=== PATIENT | male | born 1990 | race Caucasian/White ===

== ENCOUNTER 2017-11-15 14:22 | Inpatient (IN) | payer OTHER ==
[~2017-11-15] VITALS: Ht 182.9 cm; Wt 86.2 kg
[2017-11-15 14:25] VITALS: BP 143/82
--- NOTE | 2017-11-15 14:25 | NUR ---
Pre-Admission Assessment Professor Of Religion encounters pt in intake office. Pt's VS are stable. Pt is diaphoretic, nauseous, anxious and restless. Pt is with fine tremors and has myalgia. Pt endorses suing 0.5 - 1. gram of Heroin IV daily times 4 or 5 months. Pt last used, 0.5 gram IV about 30 hours ago. Pt endorses using 8mg Suboxone at 0200 this am. Pt is A/O x4 and calm and cooperative.
--- NOTE | 2017-11-15 14:50 | NUR ---
Admission Substance Use Heroin(IV) 0.5-1 gram - Daily - for 4-5 months Xanax(PO) 1-2 mg PO - Daily - 1 month Pt is admitted to [facility] via ambulation for medical management of Benzodiazepine and Opiate withdrawals. Pt is admitted to the unit at 1448. Pt is A/O x4 and makes needs known. Linear thought process and clear speech pattern. Pt with an anxious affect and depressed and dysphoric mood. Pt is diaphoretic, tremulous, piloerection of skin and complains of myalgia and cramps. Pt is cooperative and polite, but anxious and restless. Pt endorses NKA and no PMH or PPH. Pt denies any history of SI/HI, SA, A/VH or any associated psychiatric symptoms. Pt deneis any current HI/SI or A/VH. Pt denies any history of 5150 or psychiatric hospitalizations. Pt endorses coming to [facility], " to get my life back on track." Pt endorses going to [facility] in 2013 and remaining sober for two years. Pt relapsed and again was able to remain sober sober for approximately 1 year. Pt relapsed about 5 months ago and has been using 0.5-1 grams of Heroin IV daily. Pt also using 1-2 mg Xanax daily for 1 month. Pt endorses experiencing sweats, myalgia, anxiety, nausea, chills and cramps as typical withdrawal symptoms. Pt states his last use of Heroin was 30 hours prior to arrival, but pt did present with an empty Suboxone wrapper and pt endorses taking 8mg of Suboxone this am at 0200. Empty wrapper signed for, bagged and delivered to pharmacy. Pt has experienced one overdose about 5 months ago and needed to have Narcan administered. Pt presents willing and shows insight. Pt believes his biggest trigger to relapse was, " falling away from the program." Pt endorses a desire to make better connections with people in the program and learn to live a sober life. Pt began using substances , " to fit in." Pt is educated on detoxification process and provided with admission educational material. Pt oriented to the unit and room. Pt advised of unit rules and guidelines. Skin check performed by PIETRO Rodriguez with no open wounds. and with abscesses to bi-lateral arms, both closed and intact. Will continue to monitor, support and encourage according to plan of care.
[2017-11-15 15:27] LABS: *AMPHETAMINE, URINE NEGATIVE (NEGATIVE); *BARBITURATE, URINE NEGATIVE (NEGATIVE); *CANNABINOID, URINE POSITIVE (NEGATIVE); *COCCAINE, URINE POSITIVE (NEGATIVE); *OPIATE, URINE POSITIVE (NEGATIVE); *PHENCYCLIDINE SCREEN,URINE NEGATIVE (NEGATIVE)
[2017-11-15] MEDS ORDERED: MIRALAX 17 GM POWD.PACK PO PRN (15:30)
[2017-11-15] MEDS ORDERED: diphenhydrAMINE 50 MG CAPSULE PO PRN (15:30)
[2017-11-15] MEDS ORDERED: LOPERAMIDE HCL 2 MG CAPSULE PO PRN ×2 (15:30)
[2017-11-15] MEDS ORDERED: DIAZEPAM 5 MG TABLET PO PRN (15:30)
[2017-11-15] MEDS ORDERED: MAG HYDROX/AL HYDROX/SIMETH 30 ML LIQUID UDC PO PRN (15:30)
[2017-11-15] MEDS ORDERED: DICYCLOMINE HCL 20 MG TABLET PO PRN (15:30)
[2017-11-15] MEDS ORDERED: ONDANSETRON ODT 4 MG TAB.RAPDIS SL PRN (15:30)
[2017-11-15] MEDS ORDERED: DIAZEPAM 10 MG TABLET PO PRN ×2 (15:30)
[2017-11-15] MEDS ORDERED: ACETAMINOPHEN 325 MG TABLET PO PRN (15:30)
[2017-11-15] MEDS ORDERED: BUPRENORPHINE HCL 2 MG TAB.SUBL SL PRN (15:30)
[2017-11-15] MEDS ORDERED: MAGNESIUM HYDROXIDE 30 ML LIQUID UDC PO PRN (15:30)
[2017-11-15] MEDS ORDERED: BUPRENORPHINE HCL 2 MG TAB.SUBL SL ONE (15:30)
--- NOTE | 2017-11-15 15:45 | NUR ---
CIWA 16/COWS 17 Pt is tremulous, diaphoretic, anxious, restless and has chills and myalgia. Will continue to monitor, support and encourage according to plan of care.
[2017-11-15 16:00] VITALS: BP 125/78
[2017-11-15] MEDS ORDERED: 5 DAY TAPER VALIUM-SERENITY PROTOCOL PO PRN (16:00)
[2017-11-15] MEDS: METHOCARBAMOL 750 MG TABLET PO PRN (16:13)
--- NOTE | 2017-11-15 16:30 | NUR ---
Nursing note Drugs and paraphernalia found in patient's luggage during the intake process. Destroyed by two RN's.
--- NOTE | 2017-11-15 19:09 | NUR ---
End of Shift Pt was admitted to [facility] this afternoon by lyric writer. Pt is a 27 year old male admitted for medical management of Benzodiazepine and Opiate withdrawals. Pt endorses NKA, full code and regular diet. Denies any previous PMH or PPH. Initial CIWA 16 and COWS 17. Pt medicated with OT Subutex and PRN Valium. Pt complains of nausea, myalgia, chills and sweats. Pt is anxious and restless, makes needs known. A/O x4. Bed in low position with wheels locked and side rails up x2.
--- NOTE | 2017-11-15 19:30 | NUR ---
Start of Shift Note Received a 27 y/o male px, admitted for medically supervised withdrawal from heroin and Xanax. Px will be on 5 day Valium and 5 day Subutex taper, to start tomorrow, 11/16/2017. Last reported COWS 17 and CIWA 16 by AM shift nurse. During the rounds at 1930, px is awake on bed in left semi prone position. Px appears anxious. He is disheveled and unshaven. Px has flat affect and poor eye contact. He stated that he has anxiety of 10/10 and back pain of 8/10.He also complains of sweats, chills, runny nose, teary eyes and stomach cramps. He has weakness on right hand. Abscess noted on different parts of both forearms. Bed on lowest position, bed rails up 2x and call light within reach. Well continue to monitor.
[2017-11-15 20:00] VITALS: BP 142/89
[2017-11-15] MEDS: IBUPROFEN 600 MG TABLET PO PRN (20:00)
--- NOTE | 2017-11-15 20:00 | NUR ---
COWS 13 and CIWA 13 Upon assessment, Px appears anxious. He stated that he has anxiety of 10/10 and back pain of 8/10. He complains of sweats, chills, runny nose, teary eyes and stomach cramps. will continue to monitor
--- NOTE | 2017-11-15 20:00 | NUR ---
PRN medications Px received Bentyl 20 mg PO for stomach cramps, Motrin 600 mg PO for back pain of 8/10 and Valium 10 mg PO for CIWA 13. To reassess after an hour
--- NOTE | 2017-11-15 21:00 | NUR ---
MOOK Yoon, Motrin and Valium reassessment Addendum: 11/15/17 at 2258 by BISHNU ECHAVARRIA RN MIGUEL 13. Px stated that his anxiety is still 10/10. Back pain is still 8/10 and his stomach cramping was relieved. will continue to monitor
--- NOTE | 2017-11-15 21:29 | NUR ---
PRN Subutex Px received Subutex 4 mg SL for COWS 13. will continue to monitor
[2017-11-15] MEDS: SULFAMETH/TRIMETH 800/160 MG TABLET PO SCH (21:49)
--- NOTE | 2017-11-15 21:49 | NUR ---
PRN medications Px received Zofran 4 mg SL for N/V and Clonidine 0.1 mg PO for anxiety. will continue to monitor
--- NOTE | 2017-11-15 21:49 | NUR ---
Bactrim PO started Px seen and examined by Dr. Jara with order Bactrim 1 cap PO q12h as starting dose for abscess on bilateral forearms.
[2017-11-15] MEDS: CLONIDINE HCL 0.1 MG TABLET PO PRN (21:50)
[2017-11-15] MEDS ORDERED: SULFAMETH/TRIMETH 800/160 MG TABLET ONE (21:53)
--- NOTE | 2017-11-15 21:59 | NUR ---
PRN Subutex reassessment COWS 11. Px stated that his stomach cramping was relieved. No yawning noted at this time. Anxiety is still high. will continue to monitor
[2017-11-15] MEDS: HYDROXYZINE PAMOATE 25 MG CAPSULE PO PRN (22:15)
--- NOTE | 2017-11-15 22:15 | NUR ---
PRN Benadryl and Vistaril Px requested pill to help him sleep. He received Benadryl 50 mg PO and Vistaril 50 mg PO for insomnia. will continue to monitor
--- NOTE | 2017-11-15 22:20 | NUR ---
PRN Zofran reassessment Px stated that his nausea improved and no more episodes of emesis
--- NOTE | 2017-11-15 22:50 | NUR ---
PRN Clonidine reassessment Px stated that his anxiety is still very high. will continue to monitor
--- NOTE | 2017-11-15 23:15 | NUR ---
PRN Benadryl and Vistaril reassessment Px is already asleep at the moment
[2017-11-16] VITALS: BP 129/81
[2017-11-16 04:00] VITALS: BP 133/83
--- NOTE | 2017-11-16 04:00 | NUR ---
COWS and CIWA deferred COWS and CIWA deferred at 0000 and 0400 due to the px is asleep, to assess if the px is awake per doctor's order. will continue to monitor
--- NOTE | 2017-11-16 06:00 | NUR ---
COWS 11 and CIWA 12 Px woke up. He appears anxious. He stated that he has anxiety of 7/10 and back pain of 7/10. He has sweats, chills, runny nose, and teary eyes. TX= 86. will continue to monitor
--- NOTE | 2017-11-16 07:05 | NUR ---
End of Shift Note During the shift at 1999, px received Bentyl 20 mg PO, Motrin 600 mg PO and Valium 10 mg PO. Bentyl was effective. At 2128, he received Subutex 4 mg SL for COWS 13. It was effective. At 2148, he received Zofran 4 mg SL, and Clonidine 0.1 mg PO. Zofran was effective. At 2148, Bactrim 1 tab Q12H given PO as starting dose for abscess on forearms. At 2214, he received Benadryl 50 mg PO and Vistaril 50 mg PO for anxiety and insomnia. They were effective. Oral intake is 1 L, voided 2x, No BM. Px slept for 6 hours. Last COWS 11 and CIWA 12. Bed on lowest position, bed rails up 2x and call light within reach. Well continue to monitor. Px endorsed to AM shift nurse.
--- NOTE | 2017-11-16 07:30 | NUR ---
Start of Shift Marine Biologist received report on 27 year old male admitted to [facility] on 11/15/17 for medical management of Benzodiazepine and Opiate withdrawals. Pt endorses NKA, full code and regular diet. Denies PMH or PPH. Pt to be started on 5 day Subutex and 5 day Valium taper this am. Last CIWA 12 and COWS 11, per NOC report. Pt was administered Bentyl(cramps), Motrin(pain), Valium(withdrawals), Subutex(withdrawals), Zofran(nausea), Clonidine(anxiety), Vistaril(anxiety) and Benadryl(insomnia) as PRN medications on NOC, per report. Marine Biologist encounters pt in pt's room with pt resting with eyes closed. Even and unlabored respirations. Bed in low position with wheels locked and side rails up x2. Will continue to monitor, support and encourage according to plan of care.
--- NOTE | 2017-11-16 08:00 | NUR ---
CIWA 13/COWS 14 Pt is diaphoretic, anxious and has fine tremors. Pt with complaints of nausea and myalgia and chills. Will continue to monitor, support and encourage according to plan of care.
[2017-11-16 08:09] VITALS: BP 124/74
[2017-11-16] MEDS ORDERED: TUBERCULIN,PURIF.PROT.DERIV. 5 TU/0.1 ML TEST ID ONE (09:00)
[2017-11-16] MEDS ORDERED: 5 DAY TAPER OF LORAZEPAM -SERENITY PROTOCOL PO PRN (09:00)
[2017-11-16] MEDS ORDERED: 5 DAY TAPER BUPRENORPHINE -SERENITY PROTOCOL SL PRN (09:00)
[2017-11-16 09:06] LABS: BASOPHILS # (AUTO) 0.1 K/uL (0.0-8.0); BASOPHILS % (AUTO) 0.8 % (0.0-2.0); EOSINOPHILS % (AUTO) 0.5 % (0.0-7.0); HEMATOCRIT 44.1 % (36.7-47.1); HEMOGLOBIN 14.7 g/dL (12.5-16.3); LYMPHOCYTES # (AUTO) 1.8 K/uL (20.0-40.0); LYMPHOCYTES % (AUTO) 25.6 % (20.5-51.5); MEAN CORPUSCULAR HEMOGLOBIN 28.7 uug (23.8-33.4); MEAN CORPUSCULAR HGB CONC 33 g/dL (32.5-36.3); MEAN CORPUSCULAR VOLUME 86.2 fL (73.0-96.2); MONOCYTES # (AUTO) 0.7 K/uL (2.0-10.0); NEUTROPHILS # (AUTO) 4.3 K/uL (1.8-8.9); NEUTROPHILS % (AUTO) 63.1 % (38.5-71.5); PLATELET COUNT (AUTO) 187 K/uL (152-348); RED BLOOD CELL COUNT(AUTO) 5.12 MIL/uL (4.06-5.63); WHITE BLOOD COUNT (AUTO) 6.9 K/uL (3.6-10.2)
[2017-11-16] MEDS: SULFAMETH/TRIMETH 800/160 MG TABLET PO SCH ×2 (09:22→21:30)
[2017-11-16] MEDS: DIAZEPAM 10 MG TABLET PO SCH ×4 (09:22→21:30)
[2017-11-16] MEDS: MULTIVITAMINS,THERAPEUTIC TABLET PO SCH (09:22)
[2017-11-16] MEDS: BUPRENORPHINE HCL 2 MG TAB.SUBL SL SCH ×4 (09:22→21:00)
[2017-11-16] MEDS: METHOCARBAMOL 750 MG TABLET PO PRN (09:22)
--- NOTE | 2017-11-16 09:22 | NUR ---
MOOK Borges Pt complains of lower back pain of 7/10 and requests, " comfort meds". Sorting And Folding Supervisor administered medication per MD order with pt tolerating well. Will continue to monitor, support and encourage according to plan of care.
[2017-11-16 09:35] LABS: ETHANOL < 3 MG/DL (0-0)
[2017-11-16 09:44] LABS: ALANINE AMINOTRANSFERASE 65 U/L (16-63); ALKALINE PHOSPHATASE 56 U/L (50-136); ASPARTATE AMINOTRANSFERASE 29 U/L (15-37); BILIRUBIN,TOTAL 0.4 mg/dL (0.2-1.0); CARBON DIOXIDE 22 mmol/L (21-32); CHLORIDE 107 mmol/L (98-107); CREATININE 0.7 mg/dL (0.6-1.3); GLUCOSE 108 mg/dL (74-106); MAGNESIUM 2.1 mg/dL (1.8-2.4); POTASSIUM 3.9 mmol/L (3.5-5.1); TOTAL PROTEIN, SERUM 7.3 g/dL (6.4-8.2); UREA NITROGEN, BLOOD 10 mg/dL (7-18)
--- NOTE | 2017-11-16 10:22 | NUR ---
PRN Re-Assessment Pt endorses relief from discomfort, rating pain at 3/10. Will continue to monitor, support and encourage according to plan of care.
[2017-11-16 10:53] LABS: THYROID STIMULATING HORMONE 0.404 mIU/mL (0.358-3.740)
--- NOTE | 2017-11-16 12:00 | NUR ---
CIWA 10/COWS 12 Pt is diaphoretic, anxious and restless with fine tremors and complaints of nausea and chills. Will continue to monitor, support and encourage according to plan of care.
[2017-11-16 12:47] VITALS: BP 124/75
--- NOTE | 2017-11-16 13:00 | NUR ---
Subutex Refusal Pt states he does not want medication. Radiologic Technician educated pt ton importance of following MD orders. Pt states he feels better. Radiologic Technician asks, "why?". Pt states, " probably because of the Subutex." Radiologic Technician educated pt on effects of medication. Pt continues to deny need for. MD made aware. Will continue to monitor, support and encourage according to plan of care.
[2017-11-16 16:30] VITALS: BP 139/83
--- NOTE | 2017-11-16 16:30 | NUR ---
BETHANYWA 9/COWS 11 Pt with moist skin, anxiety, restless, nauseous and complains of chills. Will continue to monitor, support and encourage according to plan of care.
--- NOTE | 2017-11-16 17:00 | NUR ---
Subutex Refusal Pt continues to deny the need for medication. MD and CRN made aware. Will continue to monitor, support and encourage according to plan of care.
--- NOTE | 2017-11-16 18:48 | NUR ---
End of Shift Carcass Washer provided report on 27 year old male admitted to [facility] on 11/15/17 for medical management of Benzodiazepine and Opiate withdrawals. Pt endorses NKA, full code and regular diet. Denies PMH or PPH. Pt currently on 5 day Valium and 5 day Subutex tapers. Pt refused the 1300 and 1700 doses of Subutex. Last CIWA 9 and COWS 11. Pt was administered Robaxin(myalgia) as PRN medication. Pt is A/O x4 and makes needs known. Linear thought process and clear speech pattern. Pt with a flat affect and depressed mood. Pt has fine tremors and moist skin, pt is anxious and restless. Pt refused two doses of Subutex this afternoon, aware. Bed in low position with wheels locked and side rails up x2.
--- NOTE | 2017-11-16 19:30 | NUR ---
Start of Shift Note Received a 27 y/o male px, admitted for medically supervised withdrawal from heroin and Xanax. Px will be on 5 day Valium and 5 day Subutex taper, started 11/16/2017. Last reported COWS 11 and CIWA 9 by AM shift nurse. During the rounds at 1930, px is awake on bed in left side lying position. Px appears anxious. He is disheveled and unshaven. Px has flat affect. He stated that he has anxiety of 4/10 and back pain of 5/10. He also complains of sweats, chills, runny nose, and teary eyes. He has weakness on right hand. Bed on lowest position, bed rails up 2x and call light within reach. Well continue to monitor.
[2017-11-16 20:00] VITALS: BP 116/68
--- NOTE | 2017-11-16 20:00 | NUR ---
COWS 9 and CIWA 9 Upon assessment, px appears anxious. Px has flat affect. He stated that he has anxiety of 4/10 and back pain of 5/10. He also complains of sweats, chills, runny nose, and teary eyes. WA= 64. will continue to monitor
[2017-11-16] MEDS ORDERED: QUETIAPINE FUMARATE 100 MG TABLET ONE (22:22)
[2017-11-16] MEDS: QUETIAPINE FUMARATE 100 MG TABLET PO PRN (22:25)
[2017-11-16] MEDS: IBUPROFEN 600 MG TABLET PO PRN (22:25)
--- NOTE | 2017-11-16 22:25 | NUR ---
PRN medications Px received Seroquel 100 mg PO for insomnia and Motrin 600 mg PO for back ache of 3/10. To reassess after an hour
--- NOTE | 2017-11-16 23:25 | NUR ---
PRN Seroquel and Motrin reassessment Px is lying on bed in right side lying position, ready to sleep. He stated that his back ache improved to 2/10 from 07/14. will continue to monitor
[2017-11-17] VITALS: BP 121/71
[2017-11-17 04:00] VITALS: BP 126/75
--- NOTE | 2017-11-17 07:05 | NUR ---
End of Shift Note During the shift at 2100, px refused to take standing order Subutex 4 mg SL. 2225, px received Motrin 600 mg PO for body aches and Seroquel 100 mg PO. They were effective. Oral intake is 900 ml, voided 2x, No BM. Px slept for 7 hours. Last COWS 9 and CIWA 9. Bed on lowest position, bed rails up 2x and call light within reach. Well continue to monitor. Px endorsed to AM shift nurse.
--- NOTE | 2017-11-17 07:30 | NUR ---
START OF SHIFT Pt 27 y/o male admitted for benzo and opiate withdrawal. Pt received in room on bed with eyes closed resting, but easily arousable to name. Pt alert and oriented to name, place, and time. Perrla. Skin warm and moist to touch. Respirations even and unlabored. Appears disheveled and unkempt. Hair uncombed. Dirt under the fingernails noted of both hands. Empty drink bottles scattered throughout the room. Encouraged to maintain hygiene. Anxious and restless. Complaints of generalized discomfort and body aches. Bilateral hand tremors noted. It was reported that pt slept for 8 hours last night. Last cows=9 ciwa=9 @ 1999. Pt is on a 5 day valium and is on day 2. Pt also on a 5 day subutex and is on day 2. Bed on lowest position with side rails x 2 up for safety. Call light within reach.
[2017-11-17 08:00] VITALS: BP 131/64
--- NOTE | 2017-11-17 08:00 | NUR ---
CIWA COWS ASSESSMENT cows=10 ciwa=10. Anxious and restless. Pressured speech. Complaints of generalized discomfort and body aches. Bilateral hand tremors noted. Complaints of generalized discomfort. Easily irritable and agitated.
[2017-11-17 08:06] LABS: HEPATITIS B SURFACE AG Negative (Negative)
[2017-11-17] MEDS: SULFAMETH/TRIMETH 800/160 MG TABLET PO SCH ×2 (08:24→20:46)
[2017-11-17] MEDS: MULTIVITAMINS,THERAPEUTIC TABLET PO SCH (08:25)
[2017-11-17] MEDS: DIAZEPAM 10 MG TABLET PO SCH ×3 (08:25→20:46)
[2017-11-17] MEDS ORDERED: BUPRENORPHINE HCL 2 MG TAB.SUBL SL SCH (09:00)
--- NOTE | 2017-11-17 09:17 | NUR ---
CONSULT Pt was seen and evaluated by Clotilde QUINONEZ with new order for warm compress prn to bilateral arms.
[2017-11-17 12:00] VITALS: BP 101/78
--- NOTE | 2017-11-17 12:00 | NUR ---
COWS CIWA ASSESSMENT cowa=10 ciwa=10. Anxious and restless. Observed pacing hallways. Pressured speech. Complaints of intermittent chills and perspiration. Complaints of generalized discomfort and body aches. Bilateral hand tremors noted.
--- NOTE | 2017-11-17 13:36 | NUR ---
Therapist prompted client to attend group therapy.
[2017-11-17] MEDS ORDERED: BUPRENORPHINE HCL 2 MG TAB.SUBL SL PRN (13:45)
[2017-11-17 16:00] VITALS: BP 136/88
--- NOTE | 2017-11-17 16:00 | NUR ---
COWS CIWA ASSESSMENT cows=10 ciwa=10. Anxious and restless. Pressured speech. Complaints of generalized body aches and discomfort. Bilateral hand tremors.
--- NOTE | 2017-11-17 18:32 | NUR ---
END OF SHIFT Pt 27 y/o male admitted for benzo and opiate withdrawal. Pt alert and oriented to name, place, and time. Perrla. Skin warm and moist to touch. Respirations even and unlabored. Appears disheveled and unkempt. Food wrappings scattered throughout the room. Dirt under fingernails of both hands noted. Encouraged to maintain sobriety. Anxious and restless. Pressured speech noted. Easily irritable. Bilateral hand tremors noted. Complaints of generalized discomfort. Mostly isolative to room today with minimal peer interaction. Selective with group activity. Selective with medications. Pt refused subutex scheduled today. aware. Last cows= 10 ciwa=10 @1600. Pt is on a 5 day valium and is on day 2. Pt also on prn subutex. Bed on lowest position with side rails x2 up for safety. Call light within reach.
--- NOTE | 2017-11-17 19:30 | NUR ---
Start of Shift Note Received a 27 y/o male px, admitted for medically supervised withdrawal from heroin and Xanax. Px is placed on 5 day Valium and 5 day Subutex taper, started 11/16/2017. Last reported COWS 10 and CIWA 10 by AM shift nurse. During the rounds at 1930, px is awake inside his room. Px appears anxious. He is disheveled and unshaven. Few drinks on top of his bed side table and soiled clothes on the floor noted. He stated that he has anxiety of 3/10. He also complains of sweats, chills, runny nose, and teary eyes. He has weakness on right hand. Bed on lowest position, bed rails up 2x and call light within reach. Well continue to monitor.
[2017-11-17 20:00] VITALS: BP 124/81
--- NOTE | 2017-11-17 20:00 | NUR ---
COWS 9 and CIWA 10 Upon assessment, px appears anxious. He stated that he has anxiety of 3/10. He still complains of sweats, chills, runny nose, and teary eyes. WV= 86. will continue to monitor
[2017-11-17] MEDS: QUETIAPINE FUMARATE 100 MG TABLET PO PRN (23:42)
--- NOTE | 2017-11-17 23:42 | NUR ---
PRN Seroquel Px received Seroquel 100 mg PO for insomnia. will continue to monitor
[2017-11-18] VITALS: BP 121/83
--- NOTE | 2017-11-18 | NUR ---
COWS 9 and CIWA 10 Upon assessment, px is still awake. He appears anxious. He stated that his anxiety is still 3/10. He still complains of sweats, chills, runny nose, and teary eyes. will continue to monitor
[2017-11-18] MEDS: HYDROXYZINE PAMOATE 25 MG CAPSULE PO PRN ×2 (02:26→21:48)
[2017-11-18] MEDS: METHOCARBAMOL 750 MG TABLET PO PRN (02:26)
--- NOTE | 2017-11-18 02:26 | NUR ---
PRN Medications Px complains of body aches and increased anxiety. He received Robaxin 750 mg PO and Vistaril 50 mg PO. He's having hard time sleeping. will continue to monitor
[2017-11-18 04:00] VITALS: BP 124/79
--- NOTE | 2017-11-18 04:00 | NUR ---
COWS and CIWA deferred COWS and CIWA deferred due to the px is asleep, to assess if the px is awake per doctor's order. will continue to monitor
--- NOTE | 2017-11-18 07:05 | NUR ---
End of Shift Note During the shift at 2342, px received Seroquel 100 mg PO for insomnia. It was not effective. At 0226,still awake, he received Robaxin 750 mg PO for body aches and Vistaril for anxiety. They were effective. Oral intake is 600 ml, voided 2x, No BM. Px slept for 3.5 hours. Last COWS 9 and CIWA 10. Bed on lowest position, bed rails up 2x and call light within reach. Well continue to monitor. Px endorsed to AM shift nurse.
--- NOTE | 2017-11-18 07:30 | NUR ---
START OF SHIFT Pt 27 y/o male admitted for benzo and opiate withdrawal. Pt received in room on bed. Pt alert and oriented to name, place, and time. Perrla. Skin warm and moist to touch. Respirations even and unlabored. Appears disheveled. Clothes and food wrappings scattered throughout the room. Encouraged to maintain hygiene. Anxious and restless. Pressured speech. Easily irritable. Bilateral hand tremors noted. Complaints of generalized discomfort and body aches. It was reported that pt slept for 3.5 hours last night. Last cows=9 ciwa=10 @ 0000. Pt is on a 5 day valium taper and is on day 3. Pt also on prn subutex. Bed on lowest position with side rails x2 up for safety. Call light within reach.
[2017-11-18 08:00] VITALS: BP 121/74
--- NOTE | 2017-11-18 08:00 | NUR ---
COWS CIWA ASSESSMENT cows=11 cwia=10. Anxious and restless. Pressured speech. Pacing hallways. Easily irritable. Bilateral hand tremors noted. Complaints of generalized discomfort.
[2017-11-18] MEDS: SULFAMETH/TRIMETH 800/160 MG TABLET PO SCH ×2 (08:19→21:48)
[2017-11-18] MEDS: MULTIVITAMINS,THERAPEUTIC TABLET PO SCH (08:19)
[2017-11-18] MEDS: DIAZEPAM 5 MG TABLET PO SCH ×4 (08:19→21:48)
[2017-11-18] MEDS ORDERED: BUPRENORPHINE HCL 2 MG TAB.SUBL SL SCH ×2 (09:00→15:00)
[2017-11-18 12:00] VITALS: BP 145/68
--- NOTE | 2017-11-18 12:00 | NUR ---
COWS CIWA ASSESSMENT cows=11 ciwa=10. Anxious and restless. Pressured speech noted. Bilateral hand tremors noted. Complaints of body aches and generalized discomfort. Intermittent perspiration and chills. Easily irritable.
[2017-11-18 16:00] VITALS: BP 143/91
--- NOTE | 2017-11-18 16:00 | NUR ---
COWS CIWA ASSESSMENT cows=11 ciwa=10. Bilateral hand tremors need. Complaints of generalized body aches and discomfort. Anxious and restless. Fidgety. Intermittent perspiration and chills. Irritable.
--- NOTE | 2017-11-18 18:43 | NUR ---
END OF SHIFT Pt 27 y/o male admitted for benzo and opiate withdrawal. Pt alert and oriented to name, place, and time. Perrla. Skin warm and moist to touch. Respirations even and unlabored. Pt appears disheveled. Clothes scattered throughout the room. Dirt under fingernails of both hands noted. Encouraged to maintain hygiene. Anxious and restless. Pressured speech noted. Fidgety. Easily irritable. Bilateral hand tremors noted. Complaints of generalized body aches and discomfort. Mostly in recreation room throughout the day. Pt attended group activity. Medication compliant. Last cows= 11 ciwa=10 @1600. Pt is on a 5 day valium and is on day 3. Bed on lowest position with side rails x2 up for safety. Call light within reach.
--- NOTE | 2017-11-18 19:47 | NUR ---
START OF SHIFT NOTE Rcvd report from outgoing nurse. Pt is a 27 y/o male A/O to person, place, time, and purpose, Pt was admitted for medically supervised withdrawal from Heroin and Xanax. Pt is on day 3 of a 5 day Valium taper. Pt has been presenting w/ anxiety, restlessness, depressed mood, body aches, and abdominal cramping. Pt did not receive any PRN medications during previous shift. Last CIWA 10 and COWS 11 @ 1600. Call light is within reach. Pt will continue to be monitored and needs met.
[2017-11-18 20:00] VITALS: BP 142/84
--- NOTE | 2017-11-18 20:00 | NUR ---
CIWA AND COWS ASSESSMENT CIWA 9 and COWS 10. Pt presenting w/ anxiety, restlessness, depressed mood, abdominal cramping, and body aches. V/S: T:98.5, P:60, RR:16, SPO2:100, BP:142/84.
[2017-11-18] MEDS: QUETIAPINE FUMARATE 100 MG TABLET PO PRN (21:48)
[2017-11-18] MEDS: IBUPROFEN 600 MG TABLET PO PRN (21:48)
--- NOTE | 2017-11-18 21:48 | NUR ---
PRN SEROQUEL, VISTARIL, AND MOTRIN ADMINISTRATION Seroquel 100mg given for sleep. Pt c/o insomnia. Vistaril 50mg given for anxiety/agitation. Pt observed to be restless, last CIWA 9 and COWS 10. Motrin 600mg given for headache. Pt c/o 5/10 head pain. Will reassess pt in 1 hr.
--- NOTE | 2017-11-18 22:48 | NUR ---
PRN SEROQUEL, VISTARIL, AND MOTRIN REASSESSMENT. Pt is in bed w/ his eyes closed. Pt stated relief from headache and was just about to fall asleep. Will continue to monitor pt.
--- NOTE | 2017-11-19 00:08 | NUR ---
CIWA ABD COWS DEFERRED, V/S REFUSED Pt is in bed w/ his eyes closed. Pt's respirations are unlabored and even.
--- NOTE | 2017-11-19 04:01 | NUR ---
CIWA AND COWS DEFERRED. V/S REFUSED Pt is in bed w/ his eyes closed. Pt's respirations are unlabored and even.
--- NOTE | 2017-11-19 07:09 | NUR ---
END OF SHIFT NOTE Endorsed pt to oncoming nurse. Pt is a 27 y/o male A/O to person, place, time, and purpose, Pt was admitted for medically supervised withdrawal from Heroin and Xanax. Pt completed day 3 of a 5 day Valium taper. Pt continues presenting w/ anxiety, restlessness, depressed mood, body aches, and abdominal cramping. Pt denies any S/I or H/I. PRN Seroquel was given for sleep, noted effective. PRN Vistaril given for anxiety/agitation, noted effective. PRN Motrin given for headache, noted effective. Pts fluid intake was 825ml and he slept for 8 hrs. Last CIWA 9 and COWS 10 @ 1999. Call light is within reach.
--- NOTE | 2017-11-19 07:30 | NUR ---
START OF SHIFT Pt 27 y/o male admitted for benzo and opiate withdrawal. Received in room awake watching television. Pt alert and oriented to name, place, and time. Perrla. Skin warm and moist to touch. Respirations even and unlabored. Appears disheveled. Hair uncombed. Clothes scattered throughout the room. Dirt un fingernails. Encouraged to maintain hygiene. Anxious and restless. Easily irritable. Pressured speech. Bilateral hand tremors noted. Intermittent perspiration and chills. It was reported that pt slept for 10 hours last night. Last cows=10 ciwa=10 @ 0000. Pt is on a 5 day valium taper and is on day 3. Bed on lowest position with side rails x2 up for safety. Call light within reach.
[2017-11-19 08:00] VITALS: BP 138/80
--- NOTE | 2017-11-19 08:00 | NUR ---
COWS CIWA ASSESSMENT cows=10 ciwa assessment. Bilateral hand tremors. Anxious and restless. Fidgety. Pacing. Intermittent perspiration. Generalized discomfort and body aches.
[2017-11-19] MEDS: IBUPROFEN 600 MG TABLET PO PRN (08:40)
[2017-11-19] MEDS: SULFAMETH/TRIMETH 800/160 MG TABLET PO SCH ×2 (08:40→21:41)
[2017-11-19] MEDS: MULTIVITAMINS,THERAPEUTIC TABLET PO SCH (08:40)
[2017-11-19] MEDS: DIAZEPAM 5 MG TABLET PO SCH ×3 (08:40→21:00)
--- NOTE | 2017-11-19 08:58 | NUR ---
PRN MOTRIN Pt states has generalized pain 5/10. Motrin po prn per MD order given and tolerated well.
[2017-11-19] MEDS ORDERED: BUPRENORPHINE HCL 2 MG TAB.SUBL SL SCH (09:00)
--- NOTE | 2017-11-19 09:58 | NUR ---
MOOK BLANCHARD Pt states pain 04/16.
[2017-11-19 12:00] VITALS: BP 140/92
--- NOTE | 2017-11-19 12:00 | NUR ---
COWS CIWA ASSESSMENT cows=10 ciwa assessment. Anxious and restless. Fidgety. Pacing. Bilateral hand tremors noted. complaints of body aches and generalized discomfort.
--- NOTE | 2017-11-19 13:39 | NUR ---
Therapist prompted client to attend all group therapy sessions.
[2017-11-19 16:00] VITALS: BP 141/62
--- NOTE | 2017-11-19 16:00 | NUR ---
COWS CIWA ASSESSMENT cows=10 ciwa assessment. Bilateral hand tremors noted. Anxious and restless. Fidgety. Complaints of body aches and generalized discomfort.
--- NOTE | 2017-11-19 18:50 | NUR ---
END OF SHIFT Pt 27 y/o male admitted for benzo and opiate withdrawal. Pt alert and oriented to name, place, and time. [place]. Skin warm and moist to touch. Respirations even and unlabored. Pt appears disheveled. Clothes and empty drink bottles scattered throughout the room. Encouraged to maintain hygiene. Anxious and restless. Pressured speech noted. Pacing. Easily irritable. Bilateral hand tremors noted. Complaints of generalized body aches and discomfort. Mostly in recreation room throughout the day. Pt attended group activity. Medication compliant. Last cows= 10 ciwa=10 @1600. Pt is on a 5 day valium and is on day 4. Bed on lowest position with side rails x2 up for safety. Call light within reach.
--- NOTE | 2017-11-19 19:48 | NUR ---
START OF SHIFT NOTE Rcvd report from outgoing nurse. Pt is a 27 y/o male A/O to person, place, time, and purpose. Pt was admitted for medically supervised withdrawal from Heroin and Xanax. Pt is on day 4 of 5 day Valium taper. Pt has been presenting w/ anxiety, agitation, flat affect, and depressed mood. Pt denies all other s/s of withdrawal. Pt rcvd no PRN medications during previous shift. Last CIWA 10 and COWS 10 @ 1600. Call light is within reach. Pt will continue to be monitored and needs met.
[2017-11-19 20:03] VITALS: BP 138/84
--- NOTE | 2017-11-19 20:03 | NUR ---
CIWA AND COWS ASSESSMENT CIWA 9 and COWS 8. Pt has been presenting w/ anxiety, agitation, flat affect, and depressed mood. Pt states that he is getting bored and restless here. V/S: T:98.5, P:102, RR:16, SPO2:100, BP:138/84.
[2017-11-19] MEDS: QUETIAPINE FUMARATE 100 MG TABLET PO PRN (21:41)
--- NOTE | 2017-11-19 21:41 | NUR ---
PRN SEROQUEL AND VISTARIL ADMINISTRATION Seroquel 100mg given for sleep. Pt c/o difficulty falling asleep. Vistaril 50mg given for anxiety. Will reassess pt in 1 hr.
[2017-11-19] MEDS: HYDROXYZINE PAMOATE 25 MG CAPSULE PO PRN (21:43)
--- NOTE | 2017-11-19 22:41 | NUR ---
PRN SEROQUEL AND VISTARIL REASSESSMENT Pt states relief from anxiety and feels much calmer. Pt states he will have a cigarette and then fall asleep. Will continue to monitor pt.
--- NOTE | 2017-11-20 00:26 | NUR ---
CIWA AND COWS ASSESSMENT CIWA 9 and COWS 8. Pt has been presenting w/ anxiety, agitation, insomnia, flat affect, and depressed mood. V/S: T:98.4, P:71, RR:16, SPO2:99, BP:117/76.
[2017-11-20] MEDS: CLONIDINE HCL 0.1 MG TABLET PO PRN ×2 (00:56→21:54)
--- NOTE | 2017-11-20 00:56 | NUR ---
PRN CLONIDINE ADMINISTRATION Clonidine 0.1mg given for anxiety. Pt states they are having trouble sleeping because "All of stuff is running through my mind and it's bothering me". CIWA 9 and COWS 8. BP:117/76. Will reassess pt in 1 hr.
[2017-11-20 01:02] VITALS: BP 117/76
--- NOTE | 2017-11-20 01:56 | NUR ---
PRN CLONIDINE REASSESSMENT Pt is in bed w/ his eyes closed. Pt's respirations are unlabored and even.
--- NOTE | 2017-11-20 04:10 | NUR ---
CIWA AND COWS DEFERRED. V/S REFUSED Pt is in bed /w his eyes closed. Pt's respirations are unlabored and even.
--- NOTE | 2017-11-20 07:13 | NUR ---
END OF SHIFT NOTE Endorsed pt to oncoming nurse. Pt is a 27 y/o male A/O to person, place, time, and purpose. Pt was admitted for medically supervised withdrawal from Heroin and Xanax. Pt is on day 4 of 5 day Valium taper. Pt has been refusing his Valium Taper. Pt continues presenting w/ anxiety, agitation, flat affect, insomnia, and depressed mood. Pt denies ny S/I or H/l. PRN Seroquel, Vistaril, and Clonidine were given for anxiety and sleep, noted ineffective. Pts fluid intake was 1200ml and he slept for 3 hrs. Last CIWA 9 and COWS 8 @ 0000. Call light is within reach.
--- NOTE | 2017-11-20 07:53 | NUR ---
START OF SHIFT NOTE Received report from night nurse 37 year old male admitted for Heroin/Xanax withdrawal and continues on 5 days Valium taper tolerating well. Per endorsement patient received PRN Seroquel, Vistaril, Clonidine, slept for 3 hours and last CIWA-9, COWS-8. Received patient asleep responsive to verbal and tactile stimuli. Breathing normal no SOB noted. Respiration even non labored. Skin intact warm and dry to touch. All safety measures in place call light within reach. Will cont to monitor.
[2017-11-20 08:00] VITALS: BP 130/72
[2017-11-20] MEDS: MULTIVITAMINS,THERAPEUTIC TABLET PO SCH (08:31)
[2017-11-20] MEDS: SULFAMETH/TRIMETH 800/160 MG TABLET PO SCH ×2 (08:31→21:57)
[2017-11-20] MEDS: DIAZEPAM 5 MG TABLET PO SCH ×2 (08:32→21:00)
--- NOTE | 2017-11-20 08:32 | NUR ---
CIWA/COWS ASSESSMENT CIWA-5, COWS-4, patient reported mildly anxious, agitated, restless, bilateral hand tremors, patient refused his scheduled Valium 5mg PO offered x3 risk and benefits explained, patient verbalized understanding. MD notified.
[2017-11-20] MEDS ORDERED: BUPRENORPHINE HCL 2 MG TAB.SUBL SL SCH (09:00)
[2017-11-20 12:00] VITALS: BP 141/89
--- NOTE | 2017-11-20 12:00 | NUR ---
CIWA/COWS ASSESSMENT CIWA-6, COWS-5, patient presented with sad facial expression, anxiety, agitation, restless, sweats, bilateral hand tremors. Will cont to monitor.
[2017-11-20 16:00] VITALS: BP 142/88
--- NOTE | 2017-11-20 16:00 | NUR ---
CIWA/COWS ASSESSMENT CIWA-5, COWS-4, patient exhibited chills, anxiety, agitation, restless, sweats, bilateral hand tremors. Will cont to monitor.
--- NOTE | 2017-11-20 19:17 | NUR ---
END OF SHIFT NOTE Gave report to night nurse, patient continues with Valium taper but patient refused his scheduled Valium this morning MD notified. Patient did not receive any PRN'S during shift. Patient presented with anxiety, agitation, fatigue, light headed, bilateral hand tremors. Patient attended groups activities. All safety measures in place. patient endorse to night nurse in stable condition.
--- NOTE | 2017-11-20 19:46 | NUR ---
START OF SHIFT NOTE Rcvd report from outgoing nurse. Pt is a 27 y/o male A/O to person, place, time, and purpose. Pt was admitted for medically supervised withdrawal from Heroin and Xanax. Pt completed a 5 day Valium taper. Pt has been presenting w/ anxiety, restlessness, flat affect, and depressed mood. Pt denies all other s/s of withdrawal. No PRN medications were given during the previous shift. Last CIWA 5 and COWS 4 @ 1600. Call light is within reach. Pt will continue to be monitored and needs met.
--- NOTE | 2017-11-20 20:03 | NUR ---
CIWA AND COWS ASSESSMENT CIWA 5 and COWS 4. Pt has been presenting w/ anxiety, restlessness, flat affect, and depressed mood. V/S: T:98.3, P:71, RR:16, SPO2:99, BP:142/86.
[2017-11-20 20:18] VITALS: BP 142/86
[2017-11-20] MEDS: HYDROXYZINE PAMOATE 25 MG CAPSULE PO PRN (21:54)
[2017-11-20] MEDS: QUETIAPINE FUMARATE 100 MG TABLET PO PRN (21:54)
--- NOTE | 2017-11-20 21:54 | NUR ---
PRN CLONIDINE, VISTARIL, AND SEROQUEL ADMINISTRATION Clonidine 0.1mg and Vistaril 50mg given for anxiety and agitation. Seroquel 100mg given for sleep. Pt states they only slept 3 hrs last night. Will reassess pt in 1 hr.
--- NOTE | 2017-11-20 22:54 | NUR ---
PRN CLONIDINE, VISTARIL, AND SEROQUEL REASSESSMENT Pt states relief from anxiety and agitation has subsided. Pt states will be falling asleep soon.
--- NOTE | 2017-11-21 00:12 | NUR ---
CIWA AND COWS DEFERRED. V/S REFUSED Pt is in bed w/ his eyes closed. Pt's respirations are unlabored and even.
--- NOTE | 2017-11-21 04:06 | NUR ---
CIWA AND COWS DEFERRED. V/S REFUSED Pt is in bed w/ his eyes closed. Pt's respirations are unlabored and even.
--- NOTE | 2017-11-21 07:10 | NUR ---
END OF SHIFT NOTE Endorsed pt to oncoming nurse. Pt is a 27 y/o male A/O to person, place, time, and purpose. Pt was admitted for medically supervised withdrawal from Heroin and Xanax. Pt completed a 5 day Valium taper. Pt continues presenting w/ anxiety, restlessness, flat affect, and depressed mood. Pt denies all other s/s of withdrawal. Pt denies S/I and H/I. PRN Clonidine 0.1mg and Vistaril 50mg given for anxiety and agitation, noted effective. PRN Seroquel 100mg given for sleep, noted effective. Pts fluid intake was 1000ml and he slept for 6hrs. Last CIWA 5 and COWS 4 @ 0000. Call light is within reach.
--- NOTE | 2017-11-21 07:35 | NUR ---
START OF SHIFT NOTE Received report from night nurse 27 year old male admitted for Heroin/Xanax withdrawal. Per endorsement patient received PRN Seroquel, Vistaril, Clonidine,effective per night nurse, slept for 6 hours and last CIWA-5, COWS-4. Received patient alert awake came tot he nursing station and wanted to go for smoke, patient stated he is feeling anxious, and agitation. Patient went down in the patio for smoke with RESORT MANAGER in stable condition. All safety measures in place. Will cont with plan of care. Addendum: 11/21/17 at 1116 by RITA ROUSE [facility]- came to the.
[2017-11-21 08:00] VITALS: BP 148/83
--- NOTE | 2017-11-21 08:00 | NUR ---
CIWA/COWS ASSESSMENT CIWA-4, COWS-4, patient presented with sad facial expression, fatigue, anxiety, agitation, restless, sweats, bilateral hand tremors. Will cont to monitor.
[2017-11-21] MEDS: SULFAMETH/TRIMETH 800/160 MG TABLET PO SCH ×2 (08:12→22:00)
[2017-11-21] MEDS: MULTIVITAMINS,THERAPEUTIC TABLET PO SCH (08:12)
[2017-11-21] MEDS: IBUPROFEN 600 MG TABLET PO PRN (11:34)
--- NOTE | 2017-11-21 11:34 | NUR ---
PRN MOTRIN Patient reported headache 5/10. Patient provided with non pharmacological intervention with no relief. PRN Motrin 600mg PO administered as ordered. Will cont to monitor and reassess.
[2017-11-21 12:00] VITALS: BP 133/84
--- NOTE | 2017-11-21 12:00 | NUR ---
CIWA/COWS ASSESSMENT CIWA-5, COWS-5, patient is lying in his bed comfortably. Breathing normal no SOB noted. Will cont to monitor.
--- NOTE | 2017-11-21 12:34 | NUR ---
MOTRIN REASSESSMENT Patient reported headache lower to 2/10.
[2017-11-21] MEDS ORDERED: QUET100T PO (14:19)
[2017-11-21] MEDS ORDERED: CLON0.1T14 PO (14:19)
[2017-11-21] MEDS ORDERED: HYDR-3895 PO (14:19)
[2017-11-21] MEDS ORDERED: METH-406 PO (14:19)
--- NOTE | 2017-11-21 15:35 | NUR ---
OT EVALUATION Patient was seen and evaluated by OT. Occupational therapist provided patient right wrist brace. Patient denies any pain or discomfort at this time. Will cont to monitor.
[2017-11-21 16:00] VITALS: BP 140/76
--- NOTE | 2017-11-21 16:00 | NUR ---
CIWA/COWS ASSESSMENT CIWA-4, COWS-4, patient attending groups, reported mildly anxious, agitated, restless and wanted to go for smoke. Encourage patient to use non pharmacological intervention, patient verbalized understanding. Will cont to monitor.
--- NOTE | 2017-11-21 19:00 | NUR ---
END OF SHIFT NOTE Gave report to night nurse, 27 year old male patient admitted for Benzo, Heroin, withdrawal and completed his Valium taper. Patient presented with sad facial expression, anhedonia, anxiety, agitation, restless, sweats, emotional volatility, general body discomfort, bilateral hand tremors, headache. Patient was given schedule medications along with PRN Motrin for headache noted to be effective. Last CIWA-4, COWS-4. Patient set for discharge in AM. patient denies any SI/HI. Vital signs WNL. Patient noted attending groups and activities. Encourage PO fluids as tolerated. All needs attended. All safety measures in place, call light within reach. Patient endorse to night nurse in stable condition.
--- NOTE | 2017-11-21 19:30 | NUR ---
START OF SHIFT Received 27 year old male patient admitted on 11/15/17 for Heroin and Xanax withdrawal. Pt is alert and oriented x4. Pt noted with flushed face, anxiety, and restlessness. He completed a 5 day Valium taper and is scheduled to be DC tomorrow to [facility]. Per endorsement, pt received PRN Motrin. He was seen by OT and received brace for right hand. Last CIWA:4, COWS:4 at 1600. Breathing is even ad unlabored, safety measures in place. Will monitor.
--- NOTE | 2017-11-21 20:00 | NUR ---
COWS/CIWA Pt complains of anxiety, and restlessness. Pt appears to be disheveled. CIWA:5, COWS:5. Will continue to monitor.
[2017-11-21 20:12] VITALS: BP 124/79
[2017-11-21] MEDS: QUETIAPINE FUMARATE 100 MG TABLET PO PRN (22:00)
--- NOTE | 2017-11-21 22:00 | NUR ---
PRN SEROQUEL Pt complains of difficulty falling asleep. PRN Seroquel administered as ordered. Safety measures in place. Will continue to monitor effectiveness.
--- NOTE | 2017-11-21 23:00 | NUR ---
PRN SEROQUEL REASSESSMENT PRN medication effective. Pt lying in bed with eyes closed noted to be asleep. Breathing is even and unlabored, safety measures in place. Will monitor.
--- NOTE | 2017-11-22 | NUR ---
VITALS REFUSED, COWS/CIWA DEFERRED 0000 vitals refused. COWS and CIWA deferred d/t pt lying in bed with eyes closed noted to be asleep. Breathing is even and unlabored, safety measures in place. Will monitor.
--- NOTE | 2017-11-22 04:00 | NUR ---
VITALS REFUSED, COWS/CIWA DEFERRED 0400 vitals refused. COWS and CIWA deferred d/t pt lying in bed with eyes closed noted to be asleep. Breathing is even and unlabored, safety measures in place. Will monitor.
--- NOTE | 2017-11-22 05:00 | NUR ---
COWS/CIWA Pt complains of restlessness, anxiety and agitation. COWS:5, CIWA:5. Will monitor.
[2017-11-22 05:10] VITALS: BP 129/85
--- NOTE | 2017-11-22 07:04 | NUR ---
END OF SHIFT Pt is a 27 year old male patient admitted on 11/15/17 for Heroin and Xanax withdrawal. He remains is alert and oriented x4. He was noted with flushed face, anxiety, and restlessness during the shift. He is scheduled to be DC today to [facility]. At 2200 he received PRN Seroquel for sleep. He slept a total of 6 hrs, Intake: 1,300mL, Void: x2, BM:0, COWS;5, CIWA:5 @0500. Breathing is even ad unlabored, safety measures in place. Endorsed to AM shift.
--- NOTE | 2017-11-22 07:46 | NUR ---
START OF SHIFT NOTE Received report from night nurse 27 year old male admitted for Heroin/Xanax withdrawal. Per endorsement patient received PRN Seroquel, effective per night nurse, slept for 6 hours and last CIWA-5, COWS-5. Patient schedule for discharge in AM Received patient alert awake came to he nursing station patient stated he wants to take a shower before discharge. All safety measures in place. Will cont with plan of care.
[2017-11-22 08:00] VITALS: BP 141/87
[2017-11-22] MEDS: SULFAMETH/TRIMETH 800/160 MG TABLET PO SCH (08:14)
[2017-11-22] MEDS: MULTIVITAMINS,THERAPEUTIC TABLET PO SCH (08:14)
--- NOTE | 2017-11-22 09:35 | NUR ---
DISCHARGE NOTE Patient is alert awake oriented discharge from [facility] in stable condition. Vital signs WNL. Skin intact warm and dry to touch. Patient denies any SI/HI. Patient denies any pain or discomfort. All discharge paper work completed signed and dated. All belongings returned to the patient. Patient discharge from [facility] to [facility] in stable condition.
== END 2017-11-22 09:35 | disposition home or self-care (01) | DRG 895 ==
LOC: SRC 14:22
PROVIDERS: ADMIT Family Medicine Addiction Medicine; ATTEND Family Medicine Addiction Medicine
PROC: HZ2ZZZZ Detoxification Services for Substance Abuse Treatment (ICD-10-PCS; principal; 2017-11-15)
PROC: HZ31ZZZ Individual Counseling for Substance Abuse Treatment, Behavioral (ICD-10-PCS; 2017-11-17)
PROC: HZ41ZZZ Group Counseling for Substance Abuse Treatment, Behavioral (ICD-10-PCS; 2017-11-17)
DX: F13.230 Sedative, hypnotic or anxiolytic dependence with withdrawal, uncomplicated (principal); L02.413 Cutaneous abscess of right upper limb; L02.414 Cutaneous abscess of left upper limb; F11.23 Opioid dependence with withdrawal; F14.10 Cocaine abuse, uncomplicated; F17.210 Nicotine dependence, cigarettes, uncomplicated; F41.9 Anxiety disorder, unspecified; G47.00 Insomnia, unspecified; M21.331 Wrist drop, right wrist; L72.0 Epidermal cyst; S41.132S Puncture wound without foreign body of left upper arm, sequela; S41.131S Puncture wound without foreign body of right upper arm, sequela; X78.8XXS Intentional self-harm by other sharp object, sequela
CPT/HCPCS: 36415; 70030-TC; 80307; 80346; 80349; 80353; 80361; 83735; 84443; 85025; 86592; 86705; 86803; 87340; 87806; 97165; G0480; Q0162; Q0163